=== PATIENT | male | born 1990 | race Caucasian/White ===

== ENCOUNTER 2018-11-20 23:55 | Emergency (ER) | payer OTHER ==
[~2018-11-20] VITALS: Ht 180.3 cm; Wt 86.2 kg
[2018-11-21] MEDS ORDERED: ZOFRAN IV STA (00:19)
[2018-11-21 00:25] VITALS: BP 136/84
[2018-11-21] MEDS ORDERED: NS 1000ML 1,000 ML ONE ×2 (00:25→01:17)
--- NOTE | 2018-11-21 00:25 | ER.PDOC ---
General Chief Complaint: Requesting Medical Care Stated Complaint: R SIDE PAIN Time seen by MD: 00:15 Source: patient Exam Limitations: no limitations History of Present Illness Initial Comments Pt started with RLQ pain yesterday, went to UC, told if it got worse to come to ER. Nausea and no vomiting, loose stools for 1 week, h/o IBS Timing/Duration: 24 hours Severity/Quality: severe, sharpness Radiation: RLQ, periumbilical Associated Symptoms: diarrhea, nausea/vomiting Exacerbated by: movements Relieved By: supine Allergies: Coded Allergies: No Known Allergies (Unverified , 11/21/18) Constitutional: no symptoms reported EENTM: no symptoms reported Respiratory: no symptoms reported Cardiovascular: no symptoms reported Gastrointestinal: see HPI Genitourinary: no symptoms reported Musculoskeletal: no symptoms reported Skin: no symptoms reported Psychiatric/Neurological: no symptoms reported Endocrine: no symptoms reported Hematologic/Lymphatic: no symptoms reported Physical Exam General Appearance: No Apparent Distress, WD/WN HEENT: PERRL/EOMI, Normal ENT Inspection, TMs Normal, Pharynx Normal Neck: Non-Tender, Full Range of Motion, Supple, Normal Inspection Respiratory: chest non-tender, lungs clear, normal breath sounds, no respiratory distress, no accessory muscle use Cardiovascular: Normal Peripheral Pulses, Regular Rate, Rhythm, No Edema, No Gallop, No JVD, No Murmur Gastrointestinal: Normal Bowel Sounds, No Organomegaly, Soft, Rebound (RLQ), Tenderness (RLQ) Back: Normal Inspection, No CVA Tenderness, No Vertebral Tenderness Extremities: Normal Range of Motion, Non-Tender, Normal Inspection, No Pedal Edema, No Calf Tenderness, Normal Capillary Refill, Pelvis Stable 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
[2018-11-21] MEDS ORDERED: MORPHINE SULFATE ONE (00:26)
[2018-11-21] MEDS ORDERED: ZOFRAN ONE (00:26)
[2018-11-21] MEDS ORDERED: MORPHINE SULFATE IV PRN (00:30)
[2018-11-21] MEDS ORDERED: NS 1000ML 1,000 ML IV ONE (00:30)
[2018-11-21 00:42] LABS: BASOPHIL % 0.2 % (0.0-0.2); EOSINOPHIL # 0.4 10^3/uL (0.0-0.2); EOSINOPHIL % 4.1 % (0.0-5.0); HEMOGLOBIN 17.1 g/dL (13.9-16.3); LYMPHOCYTES # 2.8 10^3/uL (1.0-4.8); LYMPHOCYTES % 31.4 % (24.0-44.0); MEAN CELL HGB 30.8 pg (26-34); MEAN CELL HGB CONCENTRATION 35.4 g/dL (33-37); MEAN CORP VOLUME 86.9 fL (78-100); MEAN PLATELET VOLUME 9.4 fL (7.8-11.0); MONOCYTES # 0.7 10^3/uL (0.3-0.8); MONOCYTES % 7.6 % (5.0-12.0); NEUTROPHIL # 4.9 10^3/uL (1.8-7.7); NEUTROPHILS % 55.9 % (41.0-85.0); RED CELL DISTRIBUTION WIDTH 12.9 % (11.5-14.5); WHITE BLOOD CELL 8.8 10^3/uL (4.5-11.0)
[2018-11-21 00:49] LABS: BILIRUBIN,URINE NEGATIVE (NEGATIVE); UROBILINOGEN,URINE NORMAL (NEGATIVE)
[2018-11-21 00:50] LABS: APPEARANCE,URINE CLEAR (CLEAR); UA COLOR YELLOW (YELLOW)
[2018-11-21 00:56] LABS: CARBON DIOXIDE 27.6 mmol/L (20.0-32)
[2018-11-21 01:30] VITALS: BP 134/88
--- NOTE | 2018-11-21 02:02 | NUR ---
CT SCAN PT RETURNS FROM RADIOLOGY VIA WC ACCOMPANIED BY PAULA RUELAS. AWAIT RESULTS.
[2018-11-21] MEDS ORDERED: NS 1000ML 1,000 ML IV STA (02:13)
[2018-11-21 02:59] VITALS: BP 129/84
--- NOTE | 2018-11-21 03:08 | NUR ---
IV IV removed, tip intact. Placed cottonball over IV site, Secured with coban. Instructed patient to remove coban on the arrival of home. Patient expressed understanding.
[2018-11-21 03:23] VITALS: BP 129/84
--- NOTE | 2018-11-23 11:34 | DIREP ---
PROCEDURE: CT ABDOMEN/PELVIS W/ CONTRAST COMPARISON: [facility], CT, CT ABD/PELVIS W/O, 11/18/2016, 00: 39 AM. INDICATIONS: RUQ pain TECHNIQUE: Axial images were created through the abdomen and pelvis with non- ionic intravenous contrast material. Oral contrast was administered. Sagittal and coronal reconstructions were performed from source images. FINDINGS: LUNG BASES: Normal. No visible pulmonary or pleural disease. LIVER: Normal. No significant liver lesions are identified. BILIARY: Normal. No visible dilatation or calcification. PANCREAS: Normal. No lesion, fluid collection, ductal dilatation, or atrophy. SPLEEN: Normal. No enlargement or focal lesion. ADRENALS: Normal. No mass or enlargement. URINARY TRACT: Kidneys enhance symmetrically without hydronephrosis. No nephrolithiasis or ureteral calculi. Urinary bladder within normal limits. AORTA/VASCULAR: No aortic aneurysmal dilatation. RETROPERITONEUM: Normal. No mass or adenopathy. BOWEL/MESENTERY: No free air. No small bowel dilatation seen to suggest obstruction. Oral contrast opacifies the distal small bowel. Appendix within normal limits. Mild mesenteric thickening fat stranding surrounding the ascending colon. Stable appearance of right lower quadrant prominent lymph nodes. Fecal residue seen throughout the colon. ABDOMINAL WALL: Normal. No mass or hernia. PELVIC ORGANS: Normal. No visible mass. Pelvic organs appropriate for patient age. BONES: Normal for age. No bony lesion or acute fracture. OTHER: Negative. CONCLUSION: 1. Mild mesenteric fat stranding surrounding the ascending colon. Stable prominent right lower quadrant lymph nodes. Findings could represent early colitis. 2. No bowel obstruction. Appendix within normal limits. 3. Additional findings, as described. Dictated by: Julián Escobar MD on 11/21/2018 at 02:51 AM [facility] CENTERSherie
== END 2018-11-21 03:17 | disposition home or self-care (01) ==
LOC: ER 23:55
DX: K52.9 Noninfective gastroenteritis and colitis, unspecified (principal)
CPT/HCPCS: 36415; 74177; 80053; 81002; 82150; 83690; 85025; 85610; 85730; 96361; 96374; 96375; 99284; J2270; J2405; J7030 ×2; Q9963; Q9967

== ENCOUNTER 2019-08-14 14:55 | Emergency (ER) | payer OTHER ==
[2019-08-14] MEDS ORDERED: DECADRON ONE (15:08)
[2019-08-14] MEDS ORDERED: VENTOLIN IH ONE (15:08)
[2019-08-14] MEDS ORDERED: VENTOLIN IH STA ×2 (15:13)
[2019-08-14] MEDS ORDERED: DECADRON IH STA (15:13)
[2019-08-14] MEDS ORDERED: PREDNISONE PO STA (15:13)
--- NOTE | 2019-08-14 15:13 | ER.PDOC ---
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 works nights and sleeps days he awoke this afternoon struggling to breath EMS found him with conversational dyspnea, coarse wheezes throughout and and 85% RA SAT Timing/Duration: 1 hour, constant, decreasing (improved after duoneb administered by EMS) Severity: severe Activities at Onset: sleep Modifying Factors: improves with albuterol nebulizer (duoneb per EMS improved symptoms remarkably) Allergies: Coded Allergies: No Known Allergies (Unverified , 11/21/18) Past Medical History Medical History: other (sleep apnea requiring CPAP) Surgical History: no surgical history Social History Smoking: non-smoker Drug Use: none Review of Systems Constitutional: no symptoms reported EENTM: no symptoms reported Respiratory: shortness of breath, wheezing (onset today with use of CPAP after filter change) Cardiovascular: no symptoms reported Gastrointestinal: no symptoms reported Musculoskeletal: no symptoms reported Skin: no symptoms reported Hematologic/Lymphatic: no symptoms reported All Other Systems: Reviewed and Negative Physical Exam General Appearance: No Apparent Distress HEENT: Normal ENT Inspection Respiratory: chest non-tender, decreased breath sounds (bilateral bases) Cardiovascular: Regular Rate, Rhythm Gastrointestinal: Normal Bowel Sounds Extremities: Normal Range of Motion Neurologic/Psychiatric: No Motor/Sensory Deficits, Alert Skin: Normal Color, Warm/Dry Lymphatic: No Adenopathy Results/Orders Results/Orders Orders - HAWA KING DO Prednisone (Prednisone) (08/14/19 15:13) Albuterol Sulfate (Ventolin) (08/14/19 15:13) Albuterol Sulfate (Ventolin) (08/14/19 15:13) Dexamethasone Sodium Phosphate (Decadron (08/14/19 15:13) Prednisone (Prednisone) (08/14/19 15:37) Xr Chest 1v (08/14/19 15:42) Vital Signs Date Time Temp Pulse Resp B/P (MAP) Pulse Ox O2 Delivery O2 Flow Rate FiO2 08/14/19 15:22 98 16 98 08/14/19 15:21 104 16 98 Administered Medications Medications (Trade) Dose Ordered Sig/Ricardo Route PRN Reason Start Time Stop Time Status Last Admin Dose Admin Albuterol Sulfate (Ventolin) 2.5 mg STAT STAT IH 08/14/19 15:13 08/14/19 15:15 DC 08/14/19 15:20 2.5 MG Prednisone (Prednisone) 40 mg STAT STAT PO 08/14/19 15:13 08/14/19 15:15 DC 08/14/19 15:42 40 MG Progress Progress Wheezing has resolved. Patient is resting comfortably with 98% RA sat at 1735. EKG/XRAY/CT/US XRAY: chest (no infiltrate, no edema) Departure Time of Disposition: 17:36 Disposition: 01 HOME, SELF-CARE Impression: Primary Impression: Reactive airway disease with wheezing without complication Condition: Improved Referrals: DEAN ZARAGOZA SAILING INSTRUCTOR (PCP) PRIMARY CARE PROVIDER Duration or Time Spent with Pa: 45 minutes Return to Work/School Can a patient return to work?: Yes (08/15/19 pm) HAWA KING DO Aug 14, 2019 15:13
[2019-08-14] MEDS ORDERED: PREDNISONE ONE (15:37)
--- NOTE | 2019-08-14 15:53 | DIREP ---
PROCEDURE:CHEST 1 VIEW COMPARISON:None. INDICATIONS:DIFFICULTY BREATHING FINDINGS: LUNGS/PLEURA:No significant pulmonary parenchymal abnormalities. No effusions. VASCULATURE:Normal. Unremarkable pulmonary vasculature. CARDIAC:Normal. No cardiac silhouette abnormality or cardiomegaly. MEDIASTINUM:Normal. No visible mass or adenopathy. BONES:Normal. No fracture or visible bony lesion. OTHER:Negative. CONCLUSION:Normal examination. Dictated by: Benitez Guzman Jr. on 08/14/2019 at 03:51 PM
== END 2019-08-14 17:57 | disposition home or self-care (01) ==
LOC: ER 14:55 → EDBD 14:55 → ER 17:57
DX: J45.909 Unspecified asthma, uncomplicated (principal); Z79.899 Other long term (current) drug therapy
CPT/HCPCS: 71045; 94640; 99283; J1100; J7512; J7613

== ENCOUNTER → 2021-10-10 | Outpatient (CLI) | payer OTHER ==
[2021-10-10 08:34] LABS: MEAN CORP HGB 30.2 pg (26-34); RED CELL DISTRIBUTION WIDTH 12.5 % (11.5-14.5)
--- NOTE | 2021-10-10 08:44 | DIREP ---
PROCEDURE:US KIDNEYS-BILAT COMPARISON:None. INDICATIONS:ACUTE RENAL FAILURE TECHNIQUE:Ultrasound examination was performed of the kidneys and bladder. FINDINGS: RIGHT KIDNEY:10.80 cm x 5.62 cm x 4.42 cm LEFT KIDNEY:11.56 cm x 5.53 cm x 6.55 cm RIGHT KIDNEY: Normal. No hydronephrosis. LEFT KIDNEY: Normal. No hydronephrosis. BLADDER:Normal. Right ureteral jet noted. OTHER:Negative. CONCLUSION:No abnormality noted. Dictated by: Moshe Pozo M.D. on 10/10/2021 at 08:42 AM
[2021-10-10 08:55] LABS: BILIRUBIN,URINE NEGATIVE (NEGATIVE); UROBILINOGEN,URINE 0.2 E.U./dL (0.2)
[2021-10-10 09:00] LABS: CARBON DIOXIDE 26.2 mmol/L (20.0-32)
== END | disposition home or self-care (01) ==
LOC: RAD 07:57
PROVIDERS: ATTEND Surgery
DX: I12.9 Hypertensive chronic kidney disease with stage 1 through stage 4 chronic kidney disease, or unspecified chronic kidney disease (principal); N18.31 Chronic kidney disease, stage 3a
CPT/HCPCS: 36415; 76770; 80053; 81003; 82565; 82570; 83735; 84156; 85027; 86038; 86225; 86235

== ENCOUNTER → 2021-11-29 | Outpatient (CLI) | payer OTHER ==
[2021-11-29 09:17] LABS: MEAN CORP HGB 30.1 pg (26-34)
[2021-11-29 09:37] LABS: BILIRUBIN,URINE NEGATIVE (NEGATIVE); UROBILINOGEN,URINE 0.2 E.U./dL (0.2)
[2021-11-29 09:39] LABS: CARBON DIOXIDE 27.6 mmol/L (20.0-32)
== END | disposition home or self-care (01) ==
LOC: NPLAB 08:59
PROVIDERS: ATTEND Internal Medicine Infectious Disease
DX: I12.9 Hypertensive chronic kidney disease with stage 1 through stage 4 chronic kidney disease, or unspecified chronic kidney disease (principal); N18.2 Chronic kidney disease, stage 2 (mild); N17.9 Acute kidney failure, unspecified
CPT/HCPCS: 36415; 80053; 81003; 83735; 85027

== ENCOUNTER → 2022-02-11 | Outpatient (CLI) | payer OTHER ==
[2022-02-11 10:52] LABS: BILIRUBIN,URINE NEGATIVE (NEGATIVE); UROBILINOGEN,URINE 0.2 E.U./dL (0.2)
[2022-02-11 11:12] LABS: CARBON DIOXIDE 26.6 mmol/L (20.0-32)
== END | disposition home or self-care (01) ==
LOC: LAB 10:19
PROVIDERS: ATTEND Internal Medicine Infectious Disease
DX: I12.9 Hypertensive chronic kidney disease with stage 1 through stage 4 chronic kidney disease, or unspecified chronic kidney disease (principal); N18.2 Chronic kidney disease, stage 2 (mild)
CPT/HCPCS: 36415; 80053; 80061; 81003; 83735